=== PATIENT | male | born 1950 | race Caucasian/White ===

== ENCOUNTER → 2017-07-16 | Outpatient (CLI) | payer MEDICARE, OTHER ==
[~2017-07-16] MED LIST: ATIVAN GENERIC 11 MG PO; DIAZEPAM5 M1; ECOTRIN325 MG PO; ENALAPRIL10 MG PO; KEFLEX 500MG.500 MG PO; LORTAB 5/3251 TAB PO; PERCOCET1 TA1 PO; PREDNISONE 20MG20 MG PO; SIMVASTATIN40 MG PO; VENLAFAXINE HYD75 M2; ZANTAC 7575 M1
--- NOTE | 2017-07-16 16:31 | RADIOLOGY REPORT PS360 ---
ARTERIAL/HCZ-EAZERMMUSCF-CIA PAD PVD, nonhealing blister left foot ORDERING PHYSICIAN: ROSA GARCÍA DPM PATIENT AGE: 66 years TECHNIQUE: Segmental pressures obtained of both right and left leg. These are compared to brachial blood pressure to yield index at each level sampled including summary CHACORTA. The data sheets from the procedure are available in PACS FINDINGS Rest study only performed today No prior studies available for comparison. Blood pressures reported are in millimeters mercury. RIGHT LEG CHACORTA = 1.1. Right toe brachial index is 0.9 Brachial BP: 139 Thigh BP: 140 Calf BP: 137 Ankle PT: 150 Ankle DP : 150 Digit =1:30 LEFT LEG CHACORTA = 0.9 Left toe brachial index is 0.85 Brachial BPD: 143 Thigh BP: 140 Calf BP: 142 Ankle PT:129 Ankle DP: 134 Digit = 122 Pulses and waveforms: Normal IMPRESSION: The ABIs and TBI's as reported above are within normal limits. Waveforms and pulses are also unremarkable.
== END ==
LOC: RT 09:24
DX: I73.9 Peripheral vascular disease, unspecified (principal); M20.42 Other hammer toe(s) (acquired), left foot; Z95.5 Presence of coronary angioplasty implant and graft

== ENCOUNTER 2017-07-27 07:43 | Day surgery (SDC) | payer MEDICARE, OTHER ==
[~2017-07-27] VITALS: Ht 185.4 cm; Wt 97.5 kg
--- NOTE | 2017-07-27 10:22 | Anesthesia Record ---
Anesthesia Record Part I Total IV fluids: 600 EBL (ml): 10 Urine Output: 0 Units of blood given: 0 B/P: 140/81 % SaO2: 92 Pulse: 85 Resps: 10 Temp: 97.6 Patient is: Awake, Stable Stable to PACU at: 0916 at 1021
--- NOTE | 2017-07-27 10:22 | Anesthesia Record ---
Anesthesia Record Part II Discharge time: 945 Destination: Same day surgery PACU nurse assessment review? Yes Patient is: Awake, Stable Anesthesia complications? No at 1028
--- NOTE | 2017-07-27 10:27 | Operative Note-Podiatry ---
Procedure/Operative Record Procedure DATE OF PROCEDURE 07/27/17 PREOPERATIVE DIAGNOSIS Left Hammertoe 4-5th Digit POSTOPERATIVE DIAGNOSIS Same as Preop Dx PROCEDURE PERFORMED Left PIPJ AP with partial condylectomy 4th digit Left PIPJ AP 5th digit SURGEON Rosa Muniz DPM ANESTHESIA General 0.5% marcaine plain 30 cc EBL (ml) 10 OPERATIVE NOTE/DISCHARGE/PLAN Indication for Procedure: Mr. Morocho is a 66-year-old male who presents with painful LEFT foot hammertoes. Pain has been getting progressively worse over the last several years. He has tried taping strapping, Darco splint, icing, elevation and nonsteroidal anti-inflammatory drugs with little relief of symptoms. He complains of pain in the hammertoes and also of a fourth interspace corn. Discussed with the patient his extensive medical history. I requested patient obtain vascular studies, cardiac and medical clearance. Vascular studies from show an CHACORTA on the RIGHT leg of 1.1 and on the LEFT 0.9. The ABIs and TBI 's as reported above are within normal limits. Waveforms and pulses are also unremarkable. I discussed conservative vs surgical treatment for the hammertoe deformity. The patient has tried modification of shoe gear, taping, strapping, toe spacers, Darco splint and has failed conservative treatment. The patient continues to have pain and worsening symptoms, affecting daily activities. I discussed the risks vs benefits of surgery to include: bleeding, infection, nerve or blood vessel damage, need for future surgery, need for removal of the implant, prolonged swelling of the digit, prolonged pain, RSD/CRPS, wound complications, DVT, and anesthetic complications including cardiac arrest/events and . No guarantees were given. All questions fully answered. The patient verbalized understanding and agreed to proceed with surgery. Consent was obtained. Understanding the patient seemed appropriate surgical candidate. With the informed consent signed the patient was preoperatively D represents unstable normal supine position. LMA was induced for anesthesia. LEFT mid calf tourniquet was applied at 225 mmHg x 13 min. LEFT PIPJ arthroplasty fourth digit with partial condylectomy: Attention was directed to the LEFT foot was prepped and draped in normal sterile fashion. Limb was exsanguinated and tourniquet was inflated. Incision was mapped out over the fourth digit, dorsal linearly over the PIPJ. Dissection is carried through skin to subcu tissue to maintain surgical hemostasis and safety retract vascular structures. Transverse tenotomy was performed at the level of PIPJ exposing the head of the proximal phalanx. There was spurring noted dorsally as well as laterally on the head of the proximal phalanx. Power resection was utilized to transect the head of the proximal phalanx and to smooth the lateral side of the bone to normal anatomic alignment. LEFT PIPJ arthroplasty fifth digit: Attention was directed to the LEFT fifth digit where a semi-elliptical incision was mapped out over the PIPJ. A derotational flap was performed by removing a piece of skin. Similar technique as above was performed. Transverse tenotomy was performed exposing the proximal phalanx head which was resected with a saw. At this point both wounds were flushed with copious amounts of normal sterile saline. Next a 0.045 smooth K wire was then inserted into the base of the middle phalanx on both fourth and fifth digit off the tip of the toe. It was retrograded back into the base of the proximal phalanx. Fluoroscopy was utilized to confirm position of tendon which was intact. The wounds were flushed at this 0.3 0 Vicryl was used to reapproximate the extensor tendon then over and over fashion. 3-0 Vicryl was then used to reapproximate subcutaneous tissue and interrupted suture fashion. 4-0 nylon was then used to approximate the skin and a horizontal mattress fashion. Via flow was injected into the surgical incision site. Postop digital and LEFT ankle block was utilized with 0.5 percent Marcaine plain, 30cc total. Skin was cleaned, Xeroform dry dressing was applied to the LEFT foot. Patient was then woken from anesthesia with vital signs stable and neurovascular status intact transferred to recovery for monitoring before being discharged home today. Specimens: None Materials: [facility] Viaflow Plan: Discharge home today Maintain dressing clean dry and intact to the LEFT foot Nonweightbearing in a offloading postop shoe with crutches, walker Apply ice the top of the LEFT foot Elevate for pain swelling Patient was given Rx for Motrin and Zofran He has pain medicine from pain management Xrays 3 views left foot in PACU Follow-up with me in office in 1 week at 1040
--- NOTE | 2017-07-27 15:00 | RADIOLOGY REPORT PS360 ---
FOOT-LT-2 VIEWS HISTORY: LT 4TH AND 5TH HAMMER TOE PINNING ORDERING PHYSICIAN: ROSA GARCÍA DPM PATIENT AGE: 66 years COMPARISON: None FINDINGS: Single image submitted with the C-arm shows pinning of the fourth and fifth toes with a pin extending through the distal and middle phalanx into the mid aspect of the proximal phalanges. IMPRESSION: Status post pinning of fourth and fifth toes
--- NOTE | 2017-07-27 15:03 | RADIOLOGY REPORT PS360 ---
FOOT-LT-3 VIEWS HISTORY: There are no deformity status post surgery POSTOP XRAYS 3 VIEWS LEFT FOOT ORDERING PHYSICIAN: ROSA GARCÍA DPM PATIENT AGE: 66 years COMPARISON: 05/29/2017 FINDINGS: Status post pin placement through the fourth and fifth toes from the tip of the distal phalanx into the mid aspect of the proximal phalanx. The proximal aspect of the. The fourth toe is along the peripheral cortical region. There is good alignment. IMPRESSION: Status post pinning of fourth and fifth toes with good alignment
[2017-07-27 15:29] VITALS: BP 108/71
== END 2017-07-27 11:16 | disposition home or self-care (01) ==
LOC: SDC 07:43
PROVIDERS: Podiatrist
PROC: 0QBR0ZZ Excision of Left Toe Phalanx, Open Approach (ICD-10-PCS; 2017-07-27)
PROC: 0SGQ04Z Fusion of Left Toe Phalangeal Joint with Internal Fixation Device, Open Approach (ICD-10-PCS; principal; 2017-07-27 09:15)
DX: M20.42 Other hammer toe(s) (acquired), left foot (principal); L84 Corns and callosities; M19.90 Unspecified osteoarthritis, unspecified site; Z87.442 Personal history of urinary calculi; I10 Essential (primary) hypertension; Z86.73 Personal history of transient ischemic attack (TIA), and cerebral infarction without residual deficits; J44.9 Chronic obstructive pulmonary disease, unspecified; E78.5 Hyperlipidemia, unspecified; Z79.82 Long term (current) use of aspirin; Z79.899 Other long term (current) drug therapy; Z91.09 Other allergy status, other than to drugs and biological substances
CPT/HCPCS: C1762; J2405